=== PATIENT | male | born 1985 | race Caucasian/White ===

== ENCOUNTER 2020-04-08 16:00 | Emergency (ER) | payer OTHER ==
[~2020-04-08] VITALS: Ht 165.1 cm; Wt 63.5 kg
[2020-04-08 16:00] VITALS: BP_SYST 114
--- NOTE | 2020-04-08 16:00 | NUR ---
BROUGHT BACK TO BED #4 AND TRIAGED. REPORT GIVEN TO POOJA
[2020-04-08] MEDS ORDERED: LIDOCAINE MPF 2% 5mL VIAL INJ ONE (16:30)
--- NOTE | 2020-04-08 16:30 | NUR ---
Pt came to ER for L hand lac, rates pain 4/10, resting in [facility], no distress noted at this time, awaiting MD.
--- NOTE | 2020-04-08 16:40 | NUR ---
Dr. Mcdermott at bedside for a laceration repair.
--- NOTE | 2020-04-08 16:50 | NUR ---
ASSISTED DR MONTANEZ WITH SUTURING AND DRESSING APPLIED.
--- NOTE | 2020-04-08 17:02 | NUR ---
Patient given written and verbal discharge instructions and verbalizes understanding. ER MD discussed with patient the results and treatment provided. Patient in stable condition. ID arm band removed. No Rx of given. Patient educated on pain management and to follow up with PMD. Pain Scale 0/10. Opportunity for questions provided and answered. Medication side effect fact sheet provided.
== END 2020-04-08 16:50 | disposition home or self-care (01) ==
LOC: SED 16:00
DX: S61.412A Laceration without foreign body of left hand, initial encounter (principal); W26.0XXA Contact with knife, initial encounter; Y93.89 Activity, other specified; Y92.89 Other specified places as the place of occurrence of the external cause; Y99.8 Other external cause status
CPT/HCPCS: 99282

== ENCOUNTER 2020-04-20 16:30 | Emergency (ER) | payer OTHER ==
[~2020-04-20] VITALS: Ht 165.1 cm; Wt 67.1 kg
[2020-04-20 16:44] VITALS: BP_SYST 122
[2020-04-20 16:50] VITALS: BP_SYST 122
== END 2020-04-20 16:52 | disposition home or self-care (01) ==
LOC: SED 16:30
DX: S61.412D Laceration without foreign body of left hand, subsequent encounter (principal); X58.XXXD Exposure to other specified factors, subsequent encounter
CPT/HCPCS: 99281